=== PATIENT | male | born 1965 | race Caucasian/White ===

== ENCOUNTER 2016-10-12 14:14 | Emergency (ER) | payer MEDICAID ==
[~2016-10-12] VITALS: Ht 180.3 cm; Wt 59.0 kg
[2016-10-12 14:20] VITALS: BP_SYST 98
[2016-10-12] MEDS ORDERED: BACITRACIN 1 GM OINT TP ONE (15:45)
[2016-10-12 16:10] VITALS: BP_SYST 98
== END 2016-10-12 16:10 | disposition home or self-care (01) ==
LOC: SED 14:14
DX: S61.306A Unspecified open wound of right little finger with damage to nail, initial encounter (principal); W31.2XXA Contact with powered woodworking and forming machines, initial encounter; Y93.89 Activity, other specified; Y92.89 Other specified places as the place of occurrence of the external cause; Y99.8 Other external cause status
CPT/HCPCS: 99284